=== PATIENT | male | born 1980 | race Caucasian/White ===

== ENCOUNTER 2016-12-20 18:55 | Emergency (ER) | payer OTHER ==
[~2016-12-20] VITALS: Ht 180.3 cm; Wt 97.5 kg
[~2016-12-20 18:55] MED LIST: /ONDA4TA PO; AUGM875T27 PO; PERC7.5T12 PO; ULTR50TA PO; ms contin PO
[2016-12-20] MEDS ORDERED: ZOLO25TA PO (19:04)
[2016-12-20] MEDS ORDERED: NORCO 5/325MG TABLET (BULK) PO ONE (20:30)
[2016-12-20 20:31] VITALS: BP 130/86
[2016-12-20] MEDS ORDERED: CIPRODEX OTIC SUSP 7.5ML AS ONE (21:00)
[2016-12-20] MEDS ORDERED: CIPRODEX OTIC SUSP 7.5ML AS SCH (21:00)
== END 2016-12-20 20:55 | disposition home or self-care (01) ==
LOC: M ED 19:58
DX: H60.311 Diffuse otitis externa, right ear (principal); M54.9 Dorsalgia, unspecified; F41.9 Anxiety disorder, unspecified; Z79.899 Other long term (current) drug therapy; Z88.6 Allergy status to analgesic agent

== ENCOUNTER 2017-03-02 20:56 | Emergency (ER) | payer OTHER ==
[~2017-03-02] VITALS: Ht 172.7 cm; Wt 97.5 kg
[~2017-03-02 20:56] MED LIST changes: +ZOLO25TA PO
[2017-03-02 20:58] VITALS: BP 121/72
[2017-03-02] MEDS ORDERED: VITA50003 PO (21:12)
[2017-03-02] MEDS ORDERED: NORC1TAB4 PO (21:12)
== END 2017-03-02 21:45 | disposition left against medical advice (07) ==
LOC: M ED 21:39
DX: Z53.29 Procedure and treatment not carried out because of patient's decision for other reasons (principal)

== ENCOUNTER → 2019-12-28 | Outpatient (CLI) | payer OTHER ==
[~2019-12-28] MED LIST changes: -/ONDA4TA PO; +NORC1TAB7 PO; +ONDA-1 PO; +VITA50005 PO
--- NOTE | 2019-12-29 07:22 | REP ---
Chest x-ray: Two views. History: Cough. Comparison chest x-ray: April 19, 2010. Comparison chest x-ray: April 19, 2010. Findings: The lungs are well inflated and clear. The pleural angles are sharp. Heart size is normal. Pulmonary vasculature is not increased. No significant bony abnormality is seen. Impression: No active disease. Electronically Signed by Fred Romero MD 12/28/2019 05:31 P
== END ==
LOC: M LRY 17:03
PROVIDERS: ATTEND Physician Assistant
DX: R05 Cough (principal); R06.02 Shortness of breath; R50.9 Fever, unspecified

== ENCOUNTER → 2019-12-28 | Outpatient (REF) | payer OTHER | LOC: M SFHCLERA 16:57 | PROVIDERS: ATTEND Physician Assistant | DX: R05 Cough (principal); R06.02 Shortness of breath; R50.9 Fever, unspecified | CPT/HCPCS: 87486; 87581; 87633; 87798; U0002 ==